=== PATIENT | male | born 1955 | race Caucasian/White ===

== ENCOUNTER 2019-04-27 10:46 | Inpatient (IN) | payer OTHER, MEDICAID ==
[~2019-04-27] VITALS: Ht 170.2 cm; Wt 61.3 kg
[2019-04-27 11:01] VITALS: Ht 170.2 cm; Wt 61.3 kg
--- NOTE | 2019-04-27 11:48 | NUR ---
PT BIB C/O SOB, PER PT'S PT IS IN RENAL FAILURE AND "WAS TOLD BY HIS RENAL DR FROM [facility] THAT HE DOESN'T NEED DIALYSIS" PT STS HE DID FELT "LIKE DIALYSIS MADE ME FEEL WORSE, AND I WASN'T PEEING EITHER", PT INSTRUCTED THAT NOT URINATING MAY HAPPEN UPON RECEIVING DIALYSIS. PT STS "NO I JUST DON'T LIKE IT", PT'S STS PT WAS GIVEN RX FOR UNK MEDICATION "SO THAT HE DOESN'T HAVE TO GET DIALYSIS, BUT HE STOPPED TAKING THAT TOO BECAUSE HE SAYS THEY MAKE HIM CONSTIPATED". PT'S ALSO STS PT WAS "TOLD BY THE DR THAT HE ISN'T A CANDIDATE FOR A TRANSPLANT BECAUSE HE HAS A BAD HEART", PT AND UNABLE TO RECALL DX OF "HEART PROBLEM". PT PLACED ON FULL CM, NAD NOTED, MSE COMPLETED BY DR SIMMONS. AT BEDSIDE. PT IN POSITION OF COMFORT, LUDWIN RAIL RAISED FOR SAFETY.
[2019-04-27 12:06] LABS: ALBUMIN 3.6 g/dL (3.4-5.0); BILIRUBIN TOTAL 0.4 mg/dL (0.20-1.00); CALCIUM 7.2 mg/dL (8.5-10.1); CARBON DIOXIDE 12.1 mmol/L (21-32); TOTAL PROTEIN, SERUM 6.9 g/dL (6.4-8.2)
[2019-04-27 12:09] LABS: CREATININE SERUM 9.9 mg/dL (0.7-1.3); POTASSIUM SERUM 6.3 mmol/L (3.5-5.1)
--- NOTE | 2019-04-27 12:35 | NUR ---
PT REFUSING TO RECEIVED DIALYSIS, GENETIC COUNSELLOR MICH AT BEDSIDE WITH MYSELF INSTRUCTING PT AND OF NEEDING TO BE ADMITTED TO [facility] [place] FOR FURTHER TREATMENT, PT STS HE WOULD LIKE TO SPEAK WITH HIS PCP "THAT HAS BEEN TREATING ME FOR 2 YEARS," PT STS HE WOULD LIKE TO GO HOME, DR SIMMONS MADE AWARE, STS HE WILL SPEAK WITH PT AND .
--- NOTE | 2019-04-27 13:00 | NUR ---
PT ASKED X3 ED STAFF TO NOTIFY ME OF WANTING TO LEAVE AMA, PT INFORMED TO PLEASE WAIT FOR RESIDENT TO SPEAK WITH HIM AND , DR ROPER MADE AWARE, STS SHE WILL ARRIVE TO SPEAK WITH PT.
--- NOTE | 2019-04-27 13:10 | NUR ---
DR CARDENASED AT BEDSIDE TO SPEAK WITH PT AND , LOAN REVIEW OFFICER PHONES GIVEN.
[2019-04-27 13:27] LABS: BASOPHIL % 0.5 % (0-2); PLATELET COUNT 217 x10^3mcL (130-400)
--- NOTE | 2019-04-27 13:35 | NUR ---
DR CARDENASED AT BEDSIDE STILL SPEAKING WITH AND PT.
[2019-04-27] MEDS ORDERED: LASIX80 MG PO (14:15)
[2019-04-27] MEDS ORDERED: CARVEDILOL3.125 M1 PO (14:17)
[2019-04-27] MEDS ORDERED: THE MEDICINE S400 I1 PO (14:17)
[2019-04-27] MEDS ORDERED: PRO30 PO (14:17)
[2019-04-27] MEDS ORDERED: ASPIR LOW81 MG PO (14:18)
[2019-04-27] MEDS ORDERED: NEURONTIN100 MG PO (14:18)
[2019-04-27] MEDS ORDERED: ALDACTONE25 MG PO (14:19)
[2019-04-27] MEDS ORDERED: LIPITOR40 MG PO (14:19)
[2019-04-27] MEDS ORDERED: ALLOPURINOL100 MG PO (14:20)
[2019-04-27 15:06] VITALS: BP 152/66
--- NOTE | 2019-04-27 15:09 | NUR ---
RECEIVED PT FROM ED VIA HARI. ORIENTED PT TO ROOM AND SURROUNDINGS. IV NOTED TO RH PATENT AND INTACT. TELE 28 PLACED ON PT READING NSR. INSTRUCTED PT ON THE USE OF CALL LIGHT FOR ASSISTANCE. ENDORSED PT TO PRIMARY NURSE NAOMIE
[2019-04-27 15:50] LABS: MAGNESIUM 2.4 mg/dL (1.8-2.4)
[2019-04-27 15:52] LABS: UA SPECIFIC GRAVITY >=1.030 (1.005-1.035); microscopic required? YES; urine erythrocyte 1+ (NEGATIVE)
[2019-04-27 15:52] LABS: T3 TOTAL 0.38 ng/mL
[2019-04-27 15:53] LABS: CHOLESTEROL/HDL RATIO 2.8
[2019-04-27 15:58] LABS: FREE T4 0.9 ng/dL (0.76-1.46)
--- NOTE | 2019-04-27 16:00 | NUR ---
CONFIRMED W/ PT HIS REACTIONS TO SEVERAL MEDICATIONS: APAP AND CODEINE GIVES HIM RASHES, AND PCN MAKES HIM "PASS OUT". UPDATED ALLERGY LIST, AND CONFIRMED SAID REACTIONS TO ZARA @ PHARMACY.
[2019-04-27 16:02] LABS: FREE THYROXINE INDEX 1.4 ug/dL (1.4-4.5); T4(THYROXINE) 3.9 ug/dL (4.7-13.3)
[2019-04-27 16:22] LABS: AMPHETAMINE QUAL UR NONE DETECTED (See below)
[2019-04-27 16:38] VITALS: BP 156/70
--- NOTE | 2019-04-27 18:01 | NUR ---
CALLED DR VELIZ TO REMIND HIM THAT PT NEEDS A DIET ORDER. PT IN BED AT THIS TIME, ASLEEP. ON TELE 28, HR 74, NSR, NO S/S CHEST PAIN OR DISCOMFORT. ON 2LNC, NO ACUTE RESPIRATORY DISTRESS NOTED. SIDE RAILS UP X 2, BED IN LOW POSITION, CALL LIGHT WITHIN REACH. WILL ENDORSE TO NOC SHIFT.
--- NOTE | 2019-04-27 18:07 | NUR ---
CALLED [facility] TO VERIFY THAT THEY RECEIVED ORDER FOR RENAL DIET TO START DINNER OF 04/27/19; STATED WILL SEND DINNER TRAY TO PT LORENA.
--- NOTE | 2019-04-27 19:05 | NUR ---
CARE ASSUMED FROM OUTGOING RN. PT SITTING UP AT BEDSIDE EATING DINNER. NO ACUTE DISTRESS NOTED. EVEN AND UNLABORED RESPIRATIONS NOTED ON 2LNC. ON TELE #28 READING SR 76. IVL INTACT. BED IN LOWEST POSITION. SIDE RAILS UPX2. CALL LIGHT WITHIN REACH. WILL CONTINUE TO MONITOR.
--- NOTE | 2019-04-27 19:42 | NUR ---
OCEANOGRAPHER GEOLOGICAL GEE AT BEDSIDE. CONSENT FOR DIALYSIS SIGNED BY PT. WILL CONTINUE TO MONITOR
[2019-04-27 20:39] VITALS: BP 113/66
--- NOTE | 2019-04-27 21:45 | NUR ---
PT REQUESTED TO RELOCATE IV SITE. IV INSERTED TO RFA, PATENT AND INTACT. FLUSHING WELL WITH GOOD BLOOD RETURN. LAC IV REMOVED, CATHETER INTACT. PRESSURE APPLIED, NO BLEEDING NOTED. TREMORS NOTED TO BUE. WILL MEDICATE PER EMAR AND CONTINUE TO MONITOR.
[2019-04-27 22:41] VITALS: BP 147/64
--- NOTE | 2019-04-27 22:55 | NUR ---
PT CONFUSED WITH VISUAL HALLUCINATIONS. IV EXTENSION PULLED OUT. BLEEDING STOPPED. IV EXTENSION REPLACED. GOWN REPLACED. ROOM CLEANED UP. IV PATENT AND INTACT WITH FLUIDS RUNNING. TREMORS TO BUE STILL PRESENT. WILL MEDICATE PER EMAR. BED IN LOWEST POSITION. SEIZURE PRECAUTION IN PLACE. SIDE RAILS UPX2. CALL LIGHT WITHIN REACH. WILL CONTINUE TO MONITOR.
--- NOTE | 2019-04-28 01:12 | NUR ---
PT ASLEEP COMFORTABLY IN BED. NO ACUTE DISTRESS NOTED. EVEN AND UNLABORED RESPIRATIONS ON 2LNC. ON TELE #28 READING SR 91. IVL INTACT. BED IN LOWEST POSITION. SIDE RAILS UPX2. CALL LIGHT WITHIN REACH. WILL CONTINUE TO MONITOR.
[2019-04-28 05:24] VITALS: BP 109/70
--- NOTE | 2019-04-28 07:05 | NUR ---
RECEIVED PT FROM DYED YARN OPERATOR NURSE. PT RESTING IN BED, AOX4, RESP E/U ON NC AT 2 LPM. NO ACUTE DISTRESS NOTED AT THIS TIME. ON TELE 28 SHOWING NSR, HR: 88. SALINE LOCK TO RH W/ NO ERYTHEMA OR EDEMA. BED IN LOWEST POSITION AND CALL LIGHT WITHIN REACH. WILL CONTINUE TO MONITOR.
--- NOTE | 2019-04-28 07:22 | NUR ---
PT RESTING COMFORTABLY IN BED. NO ACUTE CHANGES NOTED. EVEN AND UNLABORED RESPIRATION ON 2LNC. ON TELE#29 READING NSR. IVL INTACT. ALL NEEDS TENDED TO AND MET. ALL SCHEDULED MEDICATIONS GIVEN. DIALYSIS COMPLETE LAST NIGHT WITH 2L OUTPUT. BED IN LOWEST POSITION. SIDE RAILS UPX2. CALL LIGHT WITHIN REACH. ENDORSED PT TO ONCOMING SHIFT.
[2019-04-28 07:56] LABS: CALCIUM 7.2 mg/dL (8.5-10.1); CARBON DIOXIDE 25.8 mmol/L (21-32); CREATININE SERUM 6.2 mg/dL (0.7-1.3); MAGNESIUM 1.7 mg/dL (1.8-2.4); PHOSPHOROUS 5.4 mg/dL (2.5-4.9); POTASSIUM SERUM 4.4 mmol/L (3.5-5.1)
[2019-04-28 08:24] LABS: BASOPHIL % 0.5 % (0-2); PLATELET COUNT 251 x10^3mcL (130-400)
[2019-04-28 08:56] VITALS: BP 149/67
[2019-04-28 09:07] LABS: RED CELL DISTRIBUTION WIDTH 17.8 % (11.5-14.5)
--- NOTE | 2019-04-28 09:50 | NUR ---
PAGED DR. VELIZ FOR CRITICAL LAB VALUE HGB: 6.8, HCT: 20. NO NEW ORDERS AT THIS TIME.
[2019-04-28 10:53] LABS: rbc morphology (normal/abnorm) ABNORMAL (NORMAL)
[2019-04-28 11:01] LABS: rbc morphology (normal/abnorm) ABNORMAL (NORMAL)
[2019-04-28 12:35] VITALS: BP 146/62
--- NOTE | 2019-04-28 14:00 | NUR ---
ECHOCARDIOGRAM PENDING-STARTING DIALYSIS
--- NOTE | 2019-04-28 15:22 | NUR ---
BLOOD PRODUCT CONFIRMATION DONE AND SIGNED W/ RN SURU. PRE BLOOD TRANSFUSION VS TAKEN FOLLOWS: T: 99.0, HR: 85, BP: 143/62, RR: 20, O2: 96% ON NC AT 2 LPM. BENADRYL ADMINISTERED ORDERED. 1 UNIT PRBCS INFUSION STARTED AT THIS TIME BY CIVIL ENGINEERING DESIGNER GEORGINA. WILL CONTINUE TO MONITOR.
--- NOTE | 2019-04-28 15:37 | NUR ---
BLOOD TRANSFUSION TIME AT 15 MINUTES, VS REASSESSED FOLLOWS: T: 98.6, HR: 85, BP: 141/62, RR: 18, O2: 95% ON NC AT 2 LPM. WILL CONTINUE TO MONITOR.
[2019-04-28 16:19] VITALS: BP 141/65
--- NOTE | 2019-04-28 16:20 | NUR ---
HEMODIALYSIS AND SECOND UNIT OF PRBCS COMPLETED AT THIS TIME. VS FOLLOWS: T: 99.0, HR: 86, BP: 164/67, RR: 18, O2: 95% ON NC AT 2 LPM. NO ADVERSE REACTION NOTED. DIALYSIS OUTPUT OF 1L. WILL CONTINUE TO MONITOR.
--- NOTE | 2019-04-28 18:40 | NUR ---
PT RESTING IN BED, AOX4, RESP E/U ON NC AT 2 LPM. NO ACUTE DISTRESS NOTED. DENIES PAIN OR SOB. SALINE LOCK TO RH W/ NO ERYTHEMA OR EDEMA. BED IN LOWEST POSITION AND CALL LIGHT WITHIN REACH. WILL ENDORSE TO ONCOMING NURSE.
--- NOTE | 2019-04-28 19:45 | NUR ---
RECEIVED PT FROM PREVIOUS SHIFT. PT A/OX4. DENIES PAIN. DENIES SOB ON 2LNC. DENIES PAIN. IV TO R HAND SALINE LOCKED, FLUSHING WELL. CALL LIGHT WITHIN REACH, BED IN LOW POSITION. WILL CONTINUE TO MONITOR.
[2019-04-28 21:42] VITALS: BP 146/60
--- NOTE | 2019-04-29 01:20 | NUR ---
PT RESTING IN NO ACUTE DISTRESS. RR EVEN AND UNLABORED. CALL LIGHT WITHIN REACH, BED IN LOW POSITION. WILL CONTINUE TO MONITOR.
[2019-04-29 05:58] VITALS: BP 144/61
[2019-04-29 06:38] LABS: CALCIUM 7.4 mg/dL (8.5-10.1); MAGNESIUM 1.7 mg/dL (1.8-2.4); PHOSPHOROUS 4.7 mg/dL (2.5-4.9); POTASSIUM SERUM 3.3 mmol/L (3.5-5.1)
[2019-04-29 06:44] LABS: BASOPHIL % 0.3 % (0-2); PLATELET COUNT 222 x10^3mcL (130-400)
[2019-04-29 06:51] LABS: CREATININE SERUM 4.4 mg/dL (0.7-1.3); RED CELL DISTRIBUTION WIDTH 16.2 % (11.5-14.5)
--- NOTE | 2019-04-29 07:40 | NUR ---
RC'D PT RESTING IN BED WITH NO APPARENT SIGNS OF DISTRESS. A/A/O/X4, SPEECH CLEAR AND APPROPRIATE. DENIES KESSLER/DIZZINESS. MEDSURG. DENIES CHEST PAIN/PRESSURE. PALP PULSES, EDEMA NTOED TO BLE. RESPIRATIONS EQUAL AND UNLABORED. LUNGS CTA. ON RA, DENIES SOB. PT USES 2L O2 INTERMITTENTLY. DENIES SOB AT THIS TIME. ABDOMEN SOFT AND NONTENDER. ACTIVE BS. DENIES N/V. HD ON //. STRICT I&O. AV SHUNT NOTED TO JOSE. GENERALIZED WEAKNESS. AMB WITH FWW. SKIN W/D/I. PT DENIES PAIN AT THIS TIME. IV PATENT AND INTACT. BED IN LOW PSOITION. CALL LIGHT IN REACH. WILL CONTINUE TO MONITIOR
[2019-04-29 08:38] VITALS: BP 143/59
--- NOTE | 2019-04-29 08:38 | NUR ---
AM MEDICATIONS GIVEN. PT TOLERATED WELL. RESPIRATIONS EQUAL AND UNLABORED. ON RA, DENIES SOB. PT DENIES PAIN AT THIS TIME. BED IN LOW POSITION. CALL LIGHT IN REACH. RT PRESENT AT BEDSIDE. WILL CONTINUE TO MONITOR
--- NOTE | 2019-04-29 13:00 | NUR ---
REPORT GIVEN TO JAN WREN FOR CONTINUED CARE.
--- NOTE | 2019-04-29 13:05 | NUR ---
RECEIVED PATIENT ALERT/ORIENETD X4; CLEAR SPEECH. C/O BLOODY STOOL AND CONSTIPATION. NO RESP DISTRESS ON RA; O2 2L/MIN PRN. STATED SOB SUBSIDING. DENIED CHEST PAIN. ABD ROUND/SOFT. IVHL'D TO R HAND. H/D PATIENT. LAST H/D YESTERDAY. AV SHOUNT TO LUE THRILL(+)/BRUIT(+). BRP W/ ASSIST. DENIED PAIN NOW. CONTINUE MONITOR.
--- NOTE | 2019-04-29 15:00 | NUR ---
PATIENT HAD LARGE LOOSE BM X2; SMALL AMOUNT OF BRIGHT RED BLOOD IN STOOL NOTED. STOOL COLOR WAS YELLOWISH.
--- NOTE | 2019-04-29 16:03 | NUR ---
DR. ARMSTRONG CAME TO SEE PATIENT. NEW ORDER OF KCL 20 MEQ PO AND MAG RIDER 1G GIVEN.
[2019-04-29 16:57] VITALS: BP 134/61
[2019-04-29 18:08] LABS: BASOPHIL % 0.3 % (0-2); PLATELET COUNT 231 x10^3mcL (130-400)
--- NOTE | 2019-04-29 19:00 | NUR ---
ON BOWEL PREP. HAD LOOSE BM X2. TOLERATED CLEAR LIQUID DIET. NO N/V. VOID X2 VIA BRP. MAG RIDER DONE. IVTERRI'D TO R HAND. ENDORSED CARE TO [facility] NURSE.
--- NOTE | 2019-04-29 19:20 | NUR ---
RECIEVED PATIENT AT START OF SHIFT A/OX4. DENIES PAIN. NO SOB NOTED ON 2L NC, INSPIRATORY CRACKLES HEARD IN RIGHT LOWER LOBE. LEFT SIDE DIMINISHED. 1ST DOSE OF BOWEL PREP IS AT BEDSIDE. PATIENT ENCOURAGED TO FINISH WHAT WAS LEFT IN HIS CUP. PATIENT EDUCATED HE SHOULD NOT EAT OR DRINK ANYTHING AFTER MIDNIGHT FOR EGD/ COLONOSCOPY IN THE MORNING. JOSE AV SHUNT HAS BRUIT AND THRILL. IV TO RH IS SALINE LOCKED AND PATENT. BED LOCKED AND IN LOWEST POSIITON. CALL LIGHT AND BEDSIDE TABLE WITHIN REACH.
--- NOTE | 2019-04-29 20:46 | NUR ---
PATIENT'S SLIDING SCALE INSULIN DOSE HELD DUE TO NPO STATUS FOR EGD/ COLONOSCOPY TOMORROW. PATIENT REQUESTED TO HAVE NC REMOVED. PATIENT SATTING 94% ON RA. NO SOB ON RA NOTED.
[2019-04-29 20:53] VITALS: BP 139/61
--- NOTE | 2019-04-29 21:30 | NUR ---
PATIENT HAD BREATHING TREATMENT FROM RT, AND WAS PLACED ON 2L NC WITH HUMIDIFIER BECAUSE THE PATIENT STATED HE DIDNT LIKE THE NC BECAUSE IT MADE HIS NOSE DRY. PATIENT IS COMFORTABLE WITH THE NC NOW.
--- NOTE | 2019-04-29 22:00 | NUR ---
PATIENT GIVEN SECOND DOSE OF BOWEL PREP AT THIS TIME.
[2019-04-30 06:26] VITALS: BP 164/71
--- NOTE | 2019-04-30 06:35 | NUR ---
PATIENT HAS BEEN NPO SINCE MIDNIGHT FOR EGD/ COLONOSCOPY TODAY. BOTH BOWEL PREP DOSES HAVE BEEN TAKE, WELL LACTULOSE. IV TO RH IS SALINE LOCKED AND PATENT. HEARING AID IN PLACE TO LEFT EAR. CONSNET HAS BEEN SIGNED AND IN THE CHART. ANESTHESIA CONSENT STILL NEEDS TO BE OBTAINED BY ANESTHESIOLOGIST. PRE-OP CHECKLIST DONE. WILL ENDORSE CARE TO MORNING NURSE. BED LOCKED AND IN LOWETS POSIITON. CALL LIGHT WITHIN REACH.
[2019-04-30 07:11] LABS: BASOPHIL % 0.6 % (0-2); PLATELET COUNT 235 x10^3mcL (130-400)
[2019-04-30 07:15] LABS: RED CELL DISTRIBUTION WIDTH 16.8 % (11.5-14.5)
--- NOTE | 2019-04-30 07:17 | NUR ---
ASSUMED CARE OF PATIENT. SEEN RESTING IN BED THIS MORNING WITH EQUAL AND UNLABORED RESPIRATIONS. NO ACUTE DISTRESS NOTED. IV ON RH REMAINS SALINE LOCKED AT THIS TIME. REMAINING ON 2L O2 VIA NC. WILL CONTINUE TO MONITOR.
[2019-04-30 07:37] LABS: CALCIUM 7.3 mg/dL (8.5-10.1); POTASSIUM SERUM 4.2 mmol/L (3.5-5.1)
[2019-04-30 07:52] LABS: CREATININE SERUM 5.6 mg/dL (0.7-1.3)
--- NOTE | 2019-04-30 08:00 | NUR ---
MEDICATIONS HELD FOR EGD THIS MORNING.
[2019-04-30 08:28] VITALS: BP 171/72
--- NOTE | 2019-04-30 08:29 | NUR ---
REPORT PROVIDED TO GI LAB.
--- NOTE | 2019-04-30 08:48 | NUR ---
PATIENT TAKEN DOWN TO GI LAB.
[2019-04-30 09:04] LABS: MAGNESIUM 2.1 mg/dL (1.8-2.4); PHOSPHOROUS 5.7 mg/dL (2.5-4.9)
--- NOTE | 2019-04-30 09:48 | NUR ---
CALL FROM [facility] REGARDING POSSIBLE HD TODAY. ASKED TO CONTACT REGARDING HD ORDER. PAGED.
--- NOTE | 2019-04-30 11:39 | NUR ---
PATIENT RETURN FROM GI LAB.
--- NOTE | 2019-04-30 12:08 | NUR ---
PPD PLACED ON RFA. DOCUMENTATION IN CHART.
--- NOTE | 2019-04-30 13:52 | NUR ---
CARE ENDORSED TO NURSE THI. PATIENT UPDATED ON PLAN OF CARE WELL.
--- NOTE | 2019-04-30 13:55 | NUR ---
RESUME CARE FOR PT FROM STEPHANIE WREN, PT IN NO ACUTE DISTRESS, STAY IN BED, FAMILY AT BESIDE, ALL NEEDS MET, SAFETY PROTOCOL FOLLOWED, CONTINUE TO ADILSON
--- NOTE | 2019-04-30 14:32 | NUR ---
Initial Nutrition Assessment: 234/A MARY LEOS IA HR Dx: Fluid over load hyperkalemia, renal failure PMHx: HTN DM type II,ESRD. PSHx: None (Rt wrist ORIF/Lt 2nd toe ambut) Labs: NA 146H, BG 122H, BUN 56H, CREAT 5.6H, A1C 7.0H Meds: Adalat, aldactone, coreg, humulin, Lasix, Lipitor, senokot, zofran Diet: clear liquid diet PO Intake: (04/29) dinner 100%, lunch 90%, breakfast 85%, (04/28) 83% average Ht: 170.18 cm (67") Wt: 61.3 kg (135#) BMI: 21.2 kg/m2 Bed scale: 60.6 kg IBW: 148# (67 kg) %IBW: 91 UBW: 144# Age: 63/M Food Allergies: NKFA Skin: intact Armando: 20 Edema: trace pitting edema BLE, Pt on HD MWF GI: loose yellow stools d/t bowel prep Last BM: 04/29 Per H&P, Pt is a 63-year-old Male with history of ESRD on Dialysis 3 times a week for 11 months, who presented with progressively worsening shortness of breath for the last 3-4 days with bilateral lower extremity swelling, cough, and vomiting. RDN Visit (04/30): Patient has just came back from EGD. Patient appears emaciated. Patient said that he weight 144# on the day of admission and now weighs 135#. Patient's diet has been progressed to Renal. Per progress note (04/29), pt has HD on 04/28. Patient reported rectal bleeding, given GI consult and FOBT. Paged Dr. Raad Wooten to discuss recommendations waiting for call back. Problem with: N/V/D/C: no Problems with: Chewing/Swallowing: no Current appetite: good Recent wt change: 9# x 3 days (per patient) %wt change: 6 Vitamin/Supplement use: vitamin D 400IU Special diet at home: Regular, less sugar, less fat Physical activity: walking Nutrition education given: ARM handout on "DM CKD stage 1 through 4: Nutrition guidelines" was provided and concepts like portion sizes, beverage intake, low sodium foods were discussed. Food-drug interactions: Lasix- increase K, Mg intake Education given: yes Estimated Nutritional Needs Based on actual body weight 61.3 kg Energy: 2388-1419 kcal/d (30-35 kcal/kg) Protein: 73-92 g/d (1.2-1.5g/kg)- HD patient Fluid: per doctor as pt is on HD Nutrition Diagnosis 1. Impaired nutrient utilization related to endocrine and renal dysfunction as evidenced by A1C: 7.0, BUN: 56, CREAT 5.6. 2. Increased nutrient needs related to increased metabolic demands as evidenced by patient on hemodialysis. Intervention 1. Recommend continuing renal diet w/Nepro BID. Monitor/Evaluate Goal: PO intake at least 75% of estimated needs Monitor: PO intake, Labs, GI function F/U in 2-3 days as high risk 05/02-
--- NOTE | 2019-04-30 14:33 | NUR ---
1. Recommend continuing renal diet w/Nepro BID.
[2019-04-30 14:38] VITALS: BP 174/73
--- NOTE | 2019-04-30 15:52 | NUR ---
TALKED TO INFORMED HIM OF PT'S BP ON 170'S.WILL ORDER PRN MEDS.
--- NOTE | 2019-04-30 16:52 | NUR ---
PT ASSISTED TO AMBULATE ON HALLWAY WITH FWW, TAKEN WELL, ASSISTED BACK TO BED, IN NO ACUTE RESP DISTRESS, ALL NEEDS MET, SAFETY WATCHED, CONTINUE TO MONITOR
[2019-04-30 17:22] VITALS: BP 136/62
--- NOTE | 2019-04-30 18:18 | NUR ---
PT RESTING IN BED, FAMILY AT BEDSIDE, IN NO ACUTE RESP DISTRESS, NO FACIAL DROOP/SLURRED SPEECH NOTED, RESP EVEN AND NON-LABORED, CHEST RISE SYMMETRICALLY, AV SHUNT TO (L) ARM NOTED WITH THRILL/BRUIT, IV PATENT ON (R) ARM , ALL NEEDS MET, KVNG LIGHT IN REACH, BED AT LOW POSITION, RAILS X2, WILL ENDORSE TO ONCOMING RN
[2019-04-30 18:40] LABS: BASOPHIL % 0.8 % (0-2); PLATELET COUNT 271 x10^3mcL (130-400)
[2019-04-30 18:42] LABS: RED CELL DISTRIBUTION WIDTH 16.9 % (11.5-14.5)
--- NOTE | 2019-04-30 20:00 | NUR ---
PT A/A/O X4. DENIES DIZZINESS AND HEADACHE. BREATH SOUNDS CLEAR. BREATHING EVEN AND UNLABORED ON 2L NC, SPO2 96%. DENIES SOB AND DIFFICULTY BREATHING THUS FAR. DENIES CHEST PAIN AND PRESSURE. BOWEL SOUNDS ACTIVE. NO C/O N/V AND ABD PAIN. AV SHUNT NOTED ON THE LEFT UPPER ARM WITH POSITIVE BRUIT AND THRILL. LUDWIN PEDAL PITTING EDEMA NOTED. IV SALINE LOCK NOTED ON THE RIGHT WRIST. MADE PT COMFORTABLE. PLACED CALL LIGHT WITH IN REACH. WILL CONTINUE TO MONITOR.
[2019-04-30 20:35] VITALS: BP 126/61
--- NOTE | 2019-04-30 22:19 | NUR ---
PT HAD A BOWEL MOVEMENT AND C/O BLOOD TINGED STOOL. PT DID NOT FLUSH THE TOILET AND TOILET WATER OBSERVED TO BE MIXED WITH BLOOD AND STOOL ON THE BOTTOM. DR. JONES AND DR. KENNEDY NOTIFIED. NO NEW ORDER GIVEN. WILL CONTINUE TO MONITOR.
--- NOTE | 2019-05-01 00:54 | NUR ---
PT RESTING WITH EYES CLOSED. NO DISTRESS AND DISCOMFORT NOTED. WILL CONTINUE TO MONITOR.
[2019-05-01 05:55] VITALS: BP 123/53
[2019-05-01 06:31] LABS: CALCIUM 7.6 mg/dL (8.5-10.1); CARBON DIOXIDE 20.4 mmol/L (21-32); MAGNESIUM 2.2 mg/dL (1.8-2.4); PHOSPHOROUS 6.1 mg/dL (2.5-4.9); POTASSIUM SERUM 4.5 mmol/L (3.5-5.1)
--- NOTE | 2019-05-01 06:50 | NUR ---
PT QUIET AND RESTING. DENIES SOB THUS FAR. INSTRUCTED PT TO INFORM US IF HE HAS ANOTHER BOWEL MOVEMENT WITH BLOOD TINGED STOOL. PT VERBALIZED UNDERSTANDING. WILL ENDORSE TO THE AM NURSE ACCORDINGLY.
[2019-05-01 07:07] LABS: BASOPHIL % 0.4 % (0-2); PLATELET COUNT 228 x10^3mcL (130-400)
[2019-05-01 07:08] LABS: RED CELL DISTRIBUTION WIDTH 16.6 % (11.5-14.5)
--- NOTE | 2019-05-01 07:10 | NUR ---
RECEIVED PT FROM NIGHT NURSE. PT IS SITTING UP IN BED. PT LOOKS TO BE IN NO ACUTE DISTRESS AND DENIES ANY PAIN AT THIS TIME. RESPIRATIONS EVEN AND UNLABORED ON 2L NC. IV SITE PATENT WITH NO SIGNS OF ERYTHEMA OR SWELLING WITH IV H/L. BED IN LOWEST POSITION, CALL LIGHT WITHIN REACH. WILL CONTINUE TO MONITOR.
[2019-05-01 07:22] LABS: CREATININE SERUM 6.5 mg/dL (0.7-1.3)
[2019-05-01 08:27] VITALS: BP 123/42
--- NOTE | 2019-05-01 10:30 | NUR ---
DIALYSIS NURSE AT BEDSIDE. PROVIDED DIALYSIS NURSE WITH ORDERS AND LABS. HELD BLOOD PRESSURE MEDS. WILL CONTINUE TO MONITOR.
--- NOTE | 2019-05-01 13:43 | NUR ---
DIALYSIS NURSE FINISHED WITH PT'S DIALYSIS. DIALYSIS NURSE REPORTS 2L OUT. PT LOOKS TO BE IN NO ACUTE DISTRESS AT THIS TIME AND DENIES ANY PAIN. PT STATES IS HUNGRY AT THIS TIME. PT IS NOW EATING LUNCH. CURRENT BLOOD PRESSURE IS 150/57, HR: 70. BED IN LOWEST POSITION, CALL LIGHT WITHIN REACH. WILL CONTINUE TO MONITOR.
--- NOTE | 2019-05-01 14:15 | NUR ---
PT TAKEN DOWN FOR CHEST XR VIA WHEELCHAIR ACCOMPANIED BY NURSE.
--- NOTE | 2019-05-01 14:27 | NUR ---
PT RETURNED FROM X-RAY.
[2019-05-01 16:55] VITALS: BP 153/66
[2019-05-01 17:04] VITALS: BP 153/66
--- NOTE | 2019-05-01 18:24 | NUR ---
PT AWAKE, ALERT AND ORIENTED AT TIME OF DISCHARGE. PT LOOKS TO BE IN NO ACUTE DISTRESS AND DENIES ANY PAIN AT TIME OF DISCHARGE. PT DISCHARGED HOME AND WALKED TO THE LOBBY ACCOMPANIED BY NURSE AND FAMILY MEMBER WITH BELONGINGS IN HAND. PROVIDED PT WITH EDUCATION, PT VERBALIZED UNDERSTANDING. INFORMED PT THAT DIALYSIS HAS BEEN SET UP AT [facility] AND THERE IS AN APPOITNMENT SET UP TO SIGN CONSENT FORMS, PT AND FAMILY MEMBER VERBALIZED UNDERSTANDING. INFORMED PT OF FOLLOW UP APPOINTMENT WITH PCP, PT AND FAMILY MEMBER VERBALIZED UNDERSTANDING. IV REMOVED AND CATHETER FULLY INTACT. ALL QUESTIONS AND CONCERNS ADDRESSED.
== END 2019-05-01 18:24 | disposition home or self-care (01) | DRG 682 ==
LOC: ED 10:46 → MU 12:43 → DU 12:43 → MU 04-28 12:42
PROVIDERS: Emergency Medicine; Internal Medicine; Internal Medicine Gastroenterology; Internal Medicine Nephrology; ADMIT Internal Medicine
PROC: 0DB78ZX Excision of Stomach, Pylorus, Via Natural or Artificial Opening Endoscopic, Diagnostic (ICD-10-PCS; principal; 2019-04-30 10:30)
PROC: 0DJD8ZZ Inspection of Lower Intestinal Tract, Via Natural or Artificial Opening Endoscopic (ICD-10-PCS; 2019-04-30 10:30)
DX: I12.0 Hypertensive chronic kidney disease with stage 5 chronic kidney disease or end stage renal disease (principal); N18.6 End stage renal disease; J96.01 Acute respiratory failure with hypoxia; N17.0 Acute kidney failure with tubular necrosis; E44.0 Moderate protein-calorie malnutrition; E87.2 Acidosis; E11.22 Type 2 diabetes mellitus with diabetic chronic kidney disease; E11.65 Type 2 diabetes mellitus with hyperglycemia; E11.21 Type 2 diabetes mellitus with diabetic nephropathy; D17.79 Benign lipomatous neoplasm of other sites; K29.70 Gastritis, unspecified, without bleeding; D63.1 Anemia in chronic kidney disease; E87.5 Hyperkalemia; M10.9 Gout, unspecified; Z99.2 Dependence on renal dialysis; Z68.24 Body mass index [BMI] 24.0-24.9, adult; Z79.899 Other long term (current) drug therapy; Z79.84 Long term (current) use of oral hypoglycemic drugs
CPT/HCPCS: 43235; 45378; 82962; 83880; 84439; 86580; 94150; G0378; J1200; J1610; J1815; J2250; J2310; J3010; J3475; J3490; J7030; J7620; P9016; Q0163